=== PATIENT | male | born 1995 | race Caucasian/White ===

== ENCOUNTER 2024-11-23 12:39 | Emergency (ER) | payer SELFPAY ==
[~2024-11-23] VITALS: Ht 185.4 cm; Wt 72.6 kg
[2024-11-23 12:46] VITALS: BP 153/84; PULSE 78; RESP 16; TEMP 98.3; O2SAT 100
[2024-11-23] MEDS ORDERED: BACTRIM DS ONE (12:58)
[2024-11-23] MEDS ORDERED: MUPI22OI2 TP (13:00)
[2024-11-23] MEDS ORDERED: SULF1TAB24 PO (13:00)
[2024-11-23] MEDS: BACTRIM DS PO STA (13:01)
[2024-11-23 13:31] VITALS: BP 137/79; PULSE 74; RESP 16; O2SAT 97
== END 2024-11-23 13:30 | disposition home or self-care (01) ==
LOC: ER 12:39
DX: S50.362A Insect bite (nonvenomous) of left elbow, initial encounter (principal); L03.114 Cellulitis of left upper limb; F17.210 Nicotine dependence, cigarettes, uncomplicated; F17.290 Nicotine dependence, other tobacco product, uncomplicated; W57.XXXA Bitten or stung by nonvenomous insect and other nonvenomous arthropods, initial encounter; Y93.89 Activity, other specified; Y92.89 Other specified places as the place of occurrence of the external cause; Y99.8 Other external cause status
CPT/HCPCS: 99283; J8499